=== PATIENT | female | born 1995 | race Two or more races ===

== ENCOUNTER 2019-08-19 10:48 | Emergency (ER) | payer MEDICAID ==
[~2019-08-19] VITALS: Ht 160 cm; Wt 63.5 kg
[2019-08-19 11:40] LABS: Potassium 3.7 mmol/L (3.5-5.1)
[2019-08-19 11:42] LABS: Basophils # (auto) 0 uL; Basophils % (auto) 0.5 % (0.0-2.0); Eosinophils # (auto) 0.1 uL; Eosinophils % (auto) 0.8 % (0.0-7.0); Hematocrit 44.2 % (36.0-46.0); Hemoglobin 14.9 g/dL (12.2-16.2); Lymphocytes # (auto) 3.2 uL; Lymphocytes % (auto) 42.1 % (10.0-50.0); Mean Corpuscular Hemoglobin 31.6 pg (28.0-32.0); Mean Corpuscular Hgb Conc. 33.7 g/dL (32.0-36.0); Mean Corpuscular Volume 93.9 fL (80.0-100.0); Monocytes # (auto) 0.4 uL; Monocytes % (auto) 5.8 % (0.0-12.0); Neutrophils # (auto) 3.8 uL; Neutrophils % (auto) 50.8 % (37.0-80.0); Nucleated Red Blood Cells % 0.1 %; Platelet Count (auto) 352 10^3/uL (140-450); Red Blood Cells 4.71 10^6/uL (4.0-5.20); Red Cell Distribution Width 13.5 % (11.8-14.3); White Blood Cell 7.6 10^3/uL (4.4-10.8)
[2019-08-19 11:47] LABS: Albumin 3.8 g/dL (3.4-5.0); BUN/Creatinine Ratio 14.5; Bilirubin, Total 0.4 mg/dL (0.2-1.0); Calcium 8.9 mg/dL (8.5-10.1); Total Protein 7.5 g/dL (6.4-8.2)
[2019-08-19 12:09] LABS: Urine Bacteria NONE SEEN /hpf (None Seen); Urine Blood TRACE /uL (Negative); Urine Mucus FEW (None Seen); Urine Specific Gravity 1.027 (1.001-1.035); Urine WBC 6 /hpf (0 - 5)
[2019-08-19 13:48] VITALS: BP 110/51
== END 2019-08-19 14:30 | disposition home or self-care (01) ==
LOC: ER 10:48
DX: O20.0 Threatened abortion (principal); O23.41 Unspecified infection of urinary tract in pregnancy, first trimester; Z3A.01 Less than 8 weeks gestation of pregnancy
CPT/HCPCS: 36415; 76801; 80053; 81001; 81025; 84702; 85025

== ENCOUNTER 2019-08-26 21:13 | Emergency (ER) | payer MEDICAID ==
[~2019-08-26] VITALS: Ht 162.6 cm; Wt 68.0 kg
[2019-08-26 22:13] VITALS: BP 118/57
== END 2019-08-26 22:21 | disposition home or self-care (01) ==
LOC: ER 21:16
DX: O26.891 Other specified pregnancy related conditions, first trimester (principal); L25.9 Unspecified contact dermatitis, unspecified cause; Z3A.01 Less than 8 weeks gestation of pregnancy

== ENCOUNTER 2020-04-18 15:05 | Inpatient (IN) | payer MEDICAID ==
[2020-04-18] MEDS ORDERED: LACT. RINGERS/OXYTOCIN 20UNITS 1,000 ML IV ONE (15:41)
[2020-04-18] MEDS ORDERED: LACT. RINGERS/OXYTOCIN 20UNITS 1,000 ML IV SCH (15:43)
[2020-04-18] MEDS ORDERED: LIDOCAINE 2%HCL (LOCAL ANESTH.) INJ 20ML MDV ID ONE (15:45)
[2020-04-18] MEDS: IBUPROFEN 600 MG TAB PO PRN ×2 (16:11→20:41)
[2020-04-18] MEDS ORDERED: PHISODERM TOP SOLN 240ML BTL TOP PRN (17:00)
[2020-04-18] MEDS ORDERED: DERMOPLAST 60ML BOTTLE TOP PRN (17:00)
[2020-04-18] MEDS ORDERED: WITCH HAZEL-GLYCERIN PAD TOP PRN (17:00)
[2020-04-18 17:04] LABS: Basophils # (auto) 0 10 ^3/uL (0-0.2); Basophils % (auto) 0.1 % (0.0-2.0); Eosinophils # (auto) 0 10 ^3/uL (0-0.8); Hematocrit 40.3 % (36.0-46.0); Hemoglobin 13.3 g/dL (12.2-16.2); Lymphocytes # (auto) 0.8 10 ^3/uL (0.4-5.4); Lymphocytes % (auto) 6.7 % (10.0-50.0); Mean Corpuscular Hemoglobin 30.1 pg (28.0-32.0); Mean Corpuscular Hgb Conc. 33.1 g/dL (32.0-36.0); Mean Corpuscular Volume 90.9 fL (80.0-100.0); Monocytes # (auto) 0.3 10 ^3/uL (0-1.3); Monocytes % (auto) 2.7 % (0.0-12.0); Neutrophils # (auto) 11.3 10 ^3/uL (1.6-8.6); Neutrophils % (auto) 90.5 % (37.0-80.0); Platelet Count (auto) 245 10^3/uL (140-450); Red Blood Cells 4.43 10^6/uL (4.0-5.20); Red Cell Distribution Width 14.2 % (11.8-14.3); White Blood Cell 12.5 10^3/uL (4.4-10.8)
[2020-04-18 17:20] LABS: INR 0.95 (0.9-1.15); Partial Thromboplastin Time 25.9 sec (23.64-32.05)
[2020-04-18 17:22] LABS: Albumin 2.6 g/dL (3.4-5.0); Calcium 8.8 mg/dL (8.5-10.1); Potassium 3.8 mmol/L (3.5-5.1); Uric Acid 3.8 mg/dL (2.6-6.0)
[2020-04-18 17:30] LABS: BUN/Creatinine Ratio 13.1; Bilirubin, Total 0.3 mg/dL (0.2-1.0); Total Protein 6.5 g/dL (6.4-8.2)
[2020-04-18 17:39] LABS: Urine Bacteria NONE SEEN /hpf (None Seen); Urine Blood Negative /uL (Negative); Urine Mucus FEW (None Seen); Urine Specific Gravity 1.025 (1.001-1.035); Urine WBC 1 /hpf (0 - 5)
[2020-04-18 18:00] LABS: Amphetamine Screen, Urine NEGATIVE (NEGATIVE); Barbiturate Scree,Urine NEGATIVE (NEGATIVE); Benzodiazephine Screen, Urine NEGATIVE (NEGATIVE); Cannabinoid Screen, Urine POSITIVE (NEGATIVE); Cocaine Screen, Urine NEGATIVE (NEGATIVE); Opiate Scree,Urine NEGATIVE (NEGATIVE); Phencyclidine Screen, Urine NEGATIVE (NEGATIVE)
--- NOTE | 2020-04-18 18:00 | NUR ---
Ambulation: Patient OOB with standby assistance by RN. Patient ambulated to bathroom with steady gait. Patient able to void without difficulty. [facility]icare teaching provided with returned demonstration by patient. Clean gown provided and bed linen changed. Patient ambulated back to bed with steady gait and no distress noted. Voided 250 ml
[2020-04-18 19:00] VITALS: BP 103/54
--- NOTE | 2020-04-18 20:44 | NUR ---
Bottle-feeding Education due to THC positive. Discussed positive THC result with patient and risks of with positive drug test.Patient verbalized understanding and is aware of risk and insists on breast-feeding at this time.
[2020-04-18 22:53] VITALS: BP 107/54
[2020-04-18 23:00] VITALS: BP 107/54
[2020-04-19] MEDS: ACETAMINOPHEN 325 MG TAB PO PRN ×2 (01:30→15:23)
[2020-04-19 03:00] VITALS: BP 98/59
--- NOTE | 2020-04-19 03:05 | NUR ---
IV removal IV DC'd with sterile technique, catheter fully intact. Pressure dressing applied to site. Patient tolerated procedure well.
[2020-04-19] MEDS: IBUPROFEN 600 MG TAB PO PRN ×2 (05:16→10:44)
[2020-04-19 06:06] LABS: RPR Non Reactive (Non Reactive)
--- NOTE | 2020-04-19 06:20 | NUR ---
Report received from Cara LOPEZ RN on stable pt. Assumed care. Addendum: 04/19/20 at 0629 by Siri Bradford RN Amended: Links added.
[2020-04-19 07:05] VITALS: BP 96/56
--- NOTE | 2020-04-19 07:05 | NUR ---
Pt educated on importance of feeding every 3-4 hours or as warrants. Pt verbalizes understanding.
[2020-04-19] MEDS ORDERED: PREN-129 OR (09:23)
--- NOTE | 2020-04-19 11:17 | NUR ---
Asset Protection Officer May Miller, returns call for social service consult. Informed of social service consult for limited care and +THC, with newborns UDS was negative. Call transferred to pts room.
[2020-04-19 11:20] VITALS: BP 103/55
--- NOTE | 2020-04-19 11:30 | NUR ---
manager requirements May Miller, calls and speaks to this RN. Pt is cleared for discharge.
[2020-04-19 13:06] LABS: Rubella Antibodies, IgG 0.92 index (Immune >0.99)
[2020-04-19 15:12] VITALS: BP 118/60
[2020-04-19] MEDS ORDERED: MEASLES, MUMPS & RUBELLA VAC(MMRII) 0.5ML SC ONE (17:00)
--- NOTE | 2020-04-19 18:00 | NUR ---
Discharge: Discharge instructions given as ordered. Pt encouraged to follow up with COMPLIANCE PROGRAM MANAGER as instructed. All questions and concerns addressed. Patient verbalized understanding. Medication reconciliation completed and copy given to patient. All required/requested vaccines given and copies of vaccinations given to patient. Patient encouraged to prepare to depart unit.
--- NOTE | 2020-04-19 18:38 | NUR ---
Discharge: Patient ambulates with steady gait to vehicle, with all personal belongings, accompanied by staff and family member. No distress noted at time of departure, no adverse changes in status since initial assessment.
--- NOTE | 2020-04-21 18:01 | NUR ---
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 Baby is negative. Patient informed me she smoked a month ago due to severe nausea. Patient informed me she has all provisions for the baby. Patient informed me she will bottle feed the baby. Patient informed me she does not plan to use THC anymore. Patient informed me she has good family support. Patient is on WIC. FOB is involved. Patient will return home with family. I informed Siri SEGURA and patient is clear to discharge home. Addendum: 04/21/20 at 1805 by May THORNE Amended: Links added.
== END 2020-04-19 18:38 | disposition home or self-care (01) | DRG 560 ==
LOC: OBSVTOIN 15:05 → LDRP 15:05
PROVIDERS: ADMIT Specialist; ATTEND Specialist
PROC: 10E0XZZ Delivery of Products of Conception, External Approach (ICD-10-PCS; principal; 2020-04-18)
PROC: 3E0134Z Introduction of Serum, Toxoid and Vaccine into Subcutaneous Tissue, Percutaneous Approach (ICD-10-PCS; 2020-04-19)
DX: O80 Encounter for full-term uncomplicated delivery (principal); Z37.0 Single live birth; Z3A.40 40 weeks gestation of pregnancy
CPT/HCPCS: 36415; 59025; 59409; 80053; 80307; 81001; 81002; 84112; 84550; 85025; 85610; 85730; 86592; 86703; 86762; 86850; 86900; 86901; 87340; 96360; 96361; 96366; 96372; G0378; J2590

== ENCOUNTER 2020-11-19 19:13 | Emergency (ER) | payer MEDICAID ==
[~2020-11-19] VITALS: Ht 160 cm; Wt 67.1 kg
[~2020-11-19 19:13] MED LIST: PREN-129 OR
[2020-11-19 19:20] VITALS: BP 104/71
[2020-11-19 20:10] LABS: Basophils # (auto) 0 10 ^3/uL (0-0.2); Basophils % (auto) 0.4 % (0.0-2.0); Eosinophils # (auto) 0 10 ^3/uL (0-0.8); Eosinophils % (auto) 0.1 % (0.0-7.0); Hematocrit 42.5 % (36.0-46.0); Hemoglobin 14.7 g/dL (12.2-16.2); Lymphocytes # (auto) 1.5 10 ^3/uL (0.4-5.4); Lymphocytes % (auto) 38.2 % (10.0-50.0); Mean Corpuscular Hemoglobin 31.4 pg (28.0-32.0); Mean Corpuscular Hgb Conc. 34.7 g/dL (32.0-36.0); Mean Corpuscular Volume 90.4 fL (80.0-100.0); Monocytes # (auto) 0.2 10 ^3/uL (0-1.3); Monocytes % (auto) 4.3 % (0.0-12.0); Neutrophils # (auto) 2.3 10 ^3/uL (1.6-8.6); Nucleated Red Blood Cells % 0.1 %; Platelet Count (auto) 219 10^3/uL (140-450); White Blood Cell 4.1 10^3/uL (4.4-10.8)
[2020-11-19 20:28] LABS: Albumin 3.7 g/dL (3.4-5.0); Anion Gap 5 (5-15); Blood Urea Nitrogen 10 mg/dL (7-18); Calcium 8.2 mg/dL (8.5-10.1); Carbon Dioxide 29 mmol/L (21-32); Chloride 104 mmol/L (98-107); Glucose 97 mg/dL (74-106); Potassium 3.3 mmol/L (3.5-5.1); Sodium 138 mmol/L (136-145)
[2020-11-19 20:34] LABS: Alanine Aminotransferase 28 U/L (13-56); Alkaline Phosphatase 66 U/L (45-117); Aspartate Aminotransferase 23 U/L (15-37); BUN/Creatinine Ratio 16.7; Bilirubin, Total 0.3 mg/dL (0.2-1.0); GFR African American 158 mL/min; GFR Non-African American 131 mL/min; Total Protein 7.5 g/dL (6.4-8.2)
[2020-11-19] MEDS ORDERED: POTASSIUM CHL 20 Meq TABLET PO ONE (22:45)
== END 2020-11-19 22:55 | disposition home or self-care (01) ==
LOC: ER 19:13
DX: U07.1 COVID-19 (principal); N39.0 Urinary tract infection, site not specified; E86.0 Dehydration
CPT/HCPCS: 36415; 71045; 80053; 81025; 84484; 85025; 93005

== ENCOUNTER 2022-06-17 20:40 | Emergency (ER) | payer MEDICAID ==
[~2022-06-17] VITALS: Ht 160 cm; Wt 76.0 kg
[2022-06-17 20:40] VITALS: BP 155/95
[2022-06-18] MEDS ORDERED: IBUP600T27 PO (00:15)
== END 2022-06-18 01:00 | disposition home or self-care (01) ==
LOC: ER 20:40
DX: S60.221A Contusion of right hand, initial encounter (principal); W18.39XA Other fall on same level, initial encounter; Y93.89 Activity, other specified; Y92.89 Other specified places as the place of occurrence of the external cause; Y99.8 Other external cause status
CPT/HCPCS: 73110